=== PATIENT | female | born 1940 | race Caucasian/White ===

== ENCOUNTER 2018-03-27 19:35 | Inpatient (IN) | payer MEDICARE ==
[2018-03-27 20:16] LABS: #Basophils 0.2 thou/uL (0.0-0.2); #Eosinphils 0.2 thou/uL (0.0-0.7); #Lymphocytes 3.8 thou/uL (1.20-3.40); %Basophils 1.6 % (0.0-1.0); %Lymphocytes 33.9 % (21.0-51.0); %Monocytes 8.7 % (0.0-10.0); %Neutrophils 53.8 % (42.0-75.0); Hemoglobin 12.7 g/dL (12.0-16.0); Mean Corpuscular HGB CONC 34.5 g/dL (32.0-36.0); Mean Corpuscular Hemoglobin 30.4 pg (27.0-31.0); Mean Corpuscular Volume 88.1 fl (81.0-99.0); Mean Platelet Volume 6.6 fL (7.4-10.4); Platelet Count 294 thou/uL (130-400); RBC Distribution Width 11.7 % (11.5-14.5); Red Blood Cell (RBC) Count 4.17 mill/uL (4.20-5.40); White Blood Cell (WBC) Count 11.1 thou/uL (4.8-10.8)
[2018-03-27 20:20] LABS: Bilirubin Negative (Negative); Blood, Urine Negative (Negative); Clarity Slightly Cloudy (Clear); Glucose, Urine (Dipstick) Negative (Negative); Leukocyte Small (Negative); Nitrite Negative (Negative); Protein, Urine (Dipstick) Negative (Neg-Trace); Specific Gravity, Urine 1.015 (1.005-1.030); Urobilinogen 0.2 mg/dL (0.2-1.0)
[2018-03-27 20:27] LABS: INR-International Normal Ratio 1.1; PTT 25.9 SEC (22.9-36.1)
[2018-03-27 20:31] LABS: ALT (SGPT) 10 U/L (8-55); AST (SGOT) 14 U/L (5-34); Albumin 4.3 g/dL (3.4-4.8); Alkaline Phosphatase 54 U/L (40-150); Anion Gap 14 mmol/L (10-20); BUN (Urea Nitrogen) 17 mg/dL (9.8-20.1); Bilirubin, Total 0.6 mg/dL (0.2-1.2); CK (CPK) 84 U/L (29-168); Calc. Creatinine Clearance 0 mL/min (70-130); Calcium 10.1 mg/dL (7.8-10.44); Carbon Dioxide 24 mmol/L (23-31); Chloride 104 mmol/L (98-107); Estimated GFR-MDRD 51; Globulin 2.8 g/dL (2.4-3.5); Glucose 100 mg/dL (83-110); Potassium 4.4 mmol/L (3.5-5.1); Protein, Total 7.1 g/dL (6.0-8.3); Sodium 138 mmol/L (136-145)
[2018-03-27 20:32] LABS: CKMB 1.1 ng/mL (0-6.6); Troponin I Less than 0.010 ng/mL (< 0.028)
--- NOTE | 2018-03-27 20:36 | CT ---
CT OF THE BRAIN WITHOUT CONTRAST: 03/27/18 COMPARISON: MRI of brain 10/25/10. HISTORY: Mental status changes and altered mental status. Left sided weakness, dysphagia and difficulty enunci ating words. TECHNIQUE: Multiple contiguous axial images were obtained in a CT of the brain without contrast. FINDINGS: The brain is normal in morphology and attenuation without focal lesions or confluent areas of infarct ion. There is no evidence of hydrocephalus, intracranial hemorrhage or extra-axial fluid collection. The calvarium and overlying soft tissues are unremarkable. The visualized paranasal sinuses and masto id air cells are well aerated. IMPRESSION: No evidence of acute intracranial abnormality. POS: [facility]
[2018-03-27 20:37] LABS: Bacteria/HPF 1+ HPF (None Seen); RBC/HPF 0-3 HPF (0-3)
--- NOTE | 2018-03-27 20:39 | RAD ---
SINGLE VIEW OF THE CHEST 03/27/18 COMPARISON: None. HISTORY: Altered mental status and left sided weakness. FINDINGS: Single view of the chest shows a normal sized cardiomediastinal silhouette with atherosclerotic calci fications in the aorta. There is no evidence of consolidation, mass, or pleural effusion. IMPRESSION: 1. No evidence of acute cardiopulmonary disease. 2. Atherosclerotic disease. POS: [facility]
[2018-03-27 22:12] LABS: Bilirubin Negative (Negative); Blood, Urine Small (Negative); Clarity Clear (Clear); Glucose, Urine (Dipstick) Negative (Negative); Leukocyte Negative (Negative); Nitrite Negative (Negative); Protein, Urine (Dipstick) Negative (Neg-Trace); Urobilinogen 0.2 mg/dL (0.2-1.0)
[2018-03-27 22:13] LABS: Specific Gravity, Urine 1.004 (1.002-1.036)
[2018-03-27 22:24] LABS: Bacteria/HPF None Seen HPF (None Seen); Hyaline Casts/LPF 0-3 HYALINE CAST LPF (0-3 Hyaline); RBC/HPF 0-3 HPF (0-3); Squamous Epithelial 0-3 HPF (0-3); WBC/HPF 0-3 HPF (0-3)
[2018-03-27] MEDS ORDERED: Acetaminophen 325 MG TAB PO PRN (22:44)
[2018-03-27] MEDS ORDERED: Ondansetron HCl/PF 4 MG/2 ML Vial IVP PRN (22:44)
[2018-03-27] MEDS ORDERED: Ondansetron ODT 4 MG TAB SL PRN (22:44)
[2018-03-27] MEDS ORDERED: hydrALAZINE 20 MG/ML VIAL SLOW IVP PRN (23:11)
[2018-03-27] MEDS ORDERED: Bisacodyl 5 MG TAB PO PRN (23:11)
[2018-03-27] MEDS ORDERED: Labetalol HCl 100 MG/20 ML VIAL SLOW IVP PRN (23:11)
--- NOTE | 2018-03-27 23:52 | HP ---
PRIMARY CARE PROVIDER: Essence Ordaz MD CHIEF COMPLAINT: Slurred speech. HISTORY OF PRESENT ILLNESS: Ms. Donald is a pleasant 78-year-old lady who was seen at [facility] on 03/27/2018, following transfer from [facility] Emergency Room. She reports that she was doing well until 5 days ago. At that time, she developed left upper extremi ty and left lower extremity weakness. She waited a couple of days for it to resolve and subsequently told her daughters about the weakness. She also reports falling a few times over the last week. Pr ior to that, she used to use cane only occasionally. She has no using cane all the time. She denies any head trauma. She denies any nausea or vomiting. She reports shortness of breath with exertion. She denies any orthopnea. She denies any chest pain. She denies any fevers or chills. She report s urinary incontinence twice over the last 5 days. Her daughter was with her on the phone earlier today and noticed that her speech was slurred. She, t herefore, took her to the [facility] Emergency Room. The slurred speech is now resolved. She also complains of left foot spasms over the last 5 days. REVIEW OF SYSTEMS: All other systems reviewed and found to be negative. PAST MEDICAL HISTORY: Diet-controlled diabetes mellitus, dyslipidemia, hypertension, right-sided martha ast cancer, moderate coronary artery disease on cardiac catheterization in 06/2016. PAST SURGICAL HISTORY: Right wrist surgery, bladder suspension, left knee surgery, right breast lump ectomy, and hysterectomy. FAMILY HISTORY: Patient is adopted and does not know her family history. SOCIAL HISTORY: Occasional alcohol use. No tobacco use or recreational drug use. CODE STATUS: She is FULL CODE. ALLERGIES: KEFLEX, IBUPROFEN, LEVOFLOXACIN, MACRODANTIN, and SULFA. CURRENT MEDICATIONS: Toprol-XL 50 mg daily, lisinopril 20 mg daily, Lexapro 10 mg daily, Plavix 75 m g daily, Alphagan eyedrops 1 drop to both eyes once daily, Crestor 5 mg daily, Travatan eyedrops 1 dr op to each eye daily. PHYSICAL EXAMINATION: GENERAL: Ms. Donald is awake and alert, not in acute distress. VITAL SIGNS: Blood pressure is 167/71, pulse is 60. She is breathing at rate of 18, and saturating 96% on room air. She is afebrile. EYES: No scleral icterus. No conjunctival pallor. ENT: Moist mucosal membranes. No oropharyngeal erythema or exudates. NECK: Supple, nontender. Trachea is midline. RESPIRATORY: Accessory muscles of breathing are not active. Chest wall movements are symmetric bila terally. LUNGS: Clear to auscultation without wheeze, rhonchi, or crepitations. CARDIOVASCULAR: S1 and S2 are heard, regular. Peripheral pulses palpable. No carotid bruit, no per icardial rub. ABDOMEN: Soft, nontender, bowel sounds are heard. No hepatomegaly, no splenomegaly. NEUROLOGIC: Cranial nerves II through XII are intact. Power is 4+/5 in left upper and left lower ex tremities, 5/5 in right upper and right lower extremities. Deep tendon reflexes 2+, plantar reflexes downgoing bilaterally. Cerebellar: Unremarkable. MUSCULOSKELETAL: Power in the 4 extremities as described above. SKIN: No rashes or subcutaneous nodules. LYMPHATIC: No cervical lymphadenopathy. PSYCHIATRIC: Normal mood, normal affect, patient is oriented to person, place, and time. DATABASE: Ms. Donald's labs and investigations were reviewed. She had an electrocardiogram, which showed normal sinus rhythm, no ST changes to suggest an acute coronary syndrome. She has right bund le-branch block. She had noncontrast CT scan of the brain, which did not show any acute intracranial abnormality. Chest x-ray did not show any evidence of acute cardiopulmonary disease. She has leuko cytosis with 11,100 white cells, of which 53.8% are neutrophils, normal hemoglobin, normal platelet c ount. INR 1.1, normal comprehensive metabolic profile, normal troponin I, and urinalysis positive fo r small amount of blood, but negative for nitrite and leukocyte esterase. ASSESSMENT AND PLAN: Ms. Donald is a pleasant 78-year-old lady who was seen at [facility] on 03/27/2018. Her problem list includes: 1. Weakness: Her presentation is concerning for ischemic cerebrovascular accident. She will be adm itted to the hospital for MRI brain, 2D echocardiogram, and carotid Dopplers. I will continue her on Plavix for now. 2. Hypertension: Resume home medications, monitor vital signs and titrate antihypertensives as need ed. 3. Dyslipidemia: Continue statin. 4. Diet-controlled diabetes mellitus: Continue patient on ADA 1800 calorie diet. Many thanks for allowing me to participate in your patient's care. Please feel free to contact me wi th any questions or concerns. LEVEL OF RISK: Moderate. LEVEL OF COMPLEXITY: Moderate.
[2018-03-27 23:54] VITALS: BMI 35.7
[2018-03-28 00:30] LABS: Troponin I Less than 0.010 ng/mL (< 0.028)
[2018-03-28] MEDS ORDERED: Clopidogrel Bisulfate 75 MG TAB PO SCH (01:00)
[2018-03-28] MEDS ORDERED: Rosuvastatin 5 MG TAB PO SCH (01:00)
[2018-03-28 03:07] LABS: Troponin I Less than 0.010 ng/mL (< 0.028)
[2018-03-28 05:44] LABS: Anion Gap 17 mmol/L (10-20); BUN (Urea Nitrogen) 16 mg/dL (9.8-20.1); Calc. Creatinine Clearance 76 mL/min (70-130); Calcium 9.6 mg/dL (7.8-10.44); Carbon Dioxide 18 mmol/L (23-31); Cardiac Risk 4.6 (Less than 4.5); Chloride 106 mmol/L (98-107); Cholesterol 222 mg/dl (< 200 Desired); Estimated GFR-MDRD 56; Glucose 100 mg/dL (83-110); HDL Cholesterol 48 mg/dL (>60 Neg Risk); LDL Cholesterol, Calculated 147 mg/dL; Potassium 4.1 mmol/L (3.5-5.1); Sodium 137 mmol/L (136-145); Triglycerides 134 mg/dL (Less than 150)
[2018-03-28 05:48] LABS: #Basophils 0.1 thou/uL (0.0-0.2); #Eosinphils 0.3 thou/uL (0.0-0.7); #Lymphocytes 4.8 thou/uL (1.20-3.40); #Monocytes 1.3 thou/uL (0.11-0.59); #Neutrophils 5.6 thou/uL (1.40-6.50); %Basophils 0.5 % (0.0-1.0); %Eosinophils 2.2 % (0.0-10.0); %Lymphocytes 39.6 % (21.0-51.0); %Monocytes 11.1 % (0.0-10.0); %Neutrophils 46.7 % (42.0-75.0); Hemoglobin 11.7 g/dL (12.0-16.0); Mean Corpuscular HGB CONC 33.4 g/dL (32.0-36.0); Mean Corpuscular Hemoglobin 30.5 pg (27.0-31.0); Mean Corpuscular Volume 91.3 fl (81.0-99.0); Mean Platelet Volume 7.1 fL (7.4-10.4); Platelet Count 259 thou/uL (130-400); RBC Distribution Width 11.9 % (11.5-14.5); Red Blood Cell (RBC) Count 3.85 mill/uL (4.20-5.40)
--- NOTE | 2018-03-28 09:29 | MRI ---
MRI OF BRAIN PERFORMED WITHOUT CONTRAST ENHANCEMENT: HISTORY: Altered mental status, left-sided weakness, dysphasia, and difficulty enunciating words. FINDINGS: There is some mild ventricular and sulcal prominence. There are areas of T2 and FLAIR hyperintensity seen within the white matter consistent with some chronic white matter change. On the diffusion meka ght sequence, I do not see any signs that would suggest acute infarct. No intra- or extraaxial mass is identified. Mastoid air cells are clear. There is mucosal change within bilateral ethmoid air ce lls. IMPRESSION: No acute intracranial abnormalities. Atrophy with chronic white matter change. POS: [facility]
[2018-03-28] MEDS: Lisinopril 20 MG TAB PO SCH (09:54)
[2018-03-28] MEDS: Escitalopram Oxalate 10 mg Tablet PO SCH (09:54)
--- NOTE | 2018-03-28 11:38 | ULT ---
CAROTID DOPPLER ULTRASOUND: Date: 03/28/18 HISTORY: Stroke workup. COMPARISON: None. TECHNIQUE: Real-time Rodriguez scale, color Doppler, and spectral analysis of the extracranial carotid and vertebral arteries was performed. FINDINGS: Antegrade flow both vertebral arteries. No elevated peak systolic velocities. Right ICA/CCA ratio is 0.76. Left ICA/CCA ratio is 0.70. IMPRESSION: No hemodynamically significant stenosis. POS: [facility]
[2018-03-28] MEDS: Brimonidine Tartrate 0.2% Ophth Soln 5 ml Bottle EA EYE SCH (12:53)
--- NOTE | 2018-03-28 15:10 | PDOC.PN ---
- Subjective Encounter Start Date: 03/28/18 Encounter Start Time: 09:00 Subjective: pt up in bed no complains - Objective Resuscitation Status: Resuscitation Status FULL:Full Resuscitation Vital Signs & Weight: Vital Signs (12 hours) Temp Pulse Pulse Pulse Resp BP BP 03/28/18 11:16 98.6 F 67 20 03/28/18 09:54 156/72 H 03/28/18 08:40 62 61 206/83 H 03/28/18 08:00 98.0 F 65 14 03/28/18 07:14 98.0 F 65 14 03/28/18 03:14 98.2 F 60 16 BP BP Pulse Ox 03/28/18 11:16 172/79 H 98 03/28/18 09:54 03/28/18 08:40 193/78 H 03/28/18 08:00 97 03/28/18 07:14 156/72 H 97 03/28/18 03:14 171/84 H 97 Weight Weight 221 lb 11.2 oz Result Diagrams: 03/28/18 02:33 03/28/18 02:33 Phys Exam - Physical Examination HEENT: PERRLA, moist MMs, sclera anicteric, TM's clear, oral pharynx no lesions , 2+ tonsils Neck: no nodes, no JVD, supple, full ROM Respiratory: no wheezing, no rales, no rhonchi, wheezing present, clear to auscultation bilateral Cardiovascular: RRR, no significant murmur, no rub, gallop, irregular Gastrointestinal: soft, non-tender, no distention, positive bowel sounds Musculoskeletal: no edema, pulses present, edema present mild weakness to the left upper and lower Dx/Plan - Plan 1) left sided weakness: hx of tia's 2) falls 3) htn 4) dyslipidemia plan: pt's MRI brain negative, carotid no stenosis. echo pending. pt is on plavix. will increase her statin. Pt did have a fall in the hospital and has been falling few times at home. Pt does have some orthopedic issues of both her knees. PT to evaluate pt since she lives alone and she may need inpatient rehab vs outpatient. * . Review of Systems - Review of Systems Eyes: negative: Pain, Vision Change, Conjunctivae Inflammation, Eyelid Inflammation, Redness, Other ENT: negative: Ear Pain, Ear Discharge, Nose Pain, Nose Discharge, Nose Congestion, Mouth Pain, Mouth Swelling, Throat Pain, Throat Swelling, Other Respiratory: negative: Cough, Dry, Shortness of Breath, Hemoptysis, SOB with Excertion, Pleuritic Pain, Sputum, Wheezing Cardiovascular: negative: chest pain, palpitations, orthopnea, paroxysmal nocturnal dyspnea, edema, light headedness, other Gastrointestinal: negative: Nausea, Vomiting, Abdominal Pain, Diarrhea, Constipation, Melena, Hematochezia, Other Neurological: Other (mild weakness to left upper and lower ext) - Medications/Allergies Allergies/Adverse Reactions: Allergies Allergy/AdvReac Type Severity Reaction Status Date / Time cephalexin monohydrate Allergy Verified 03/27/18 23:38 [From Keflex] ibuprofen Allergy Verified 03/27/18 23:38 levofloxacin [From Levaquin] Allergy Verified 03/27/18 23:38 nitrofurantoin Allergy Verified 03/27/18 23:38 macrocrystalline [From Macrodantin] Sulfa (Sulfonamide Allergy Verified 03/27/18 23:38 Antibiotics) triamcinolone acetonide Allergy Verified 07/18/16 20:25 [From Kenalog] Medications: Current Medications Acetaminophen (Tylenol) 650 mg PO Q4H PRN PRN Reason: Headache/Fever or Pain Bisacodyl (Dulcolax) 10 mg PO DAILYPRN PRN PRN Reason: Constipation Brimonidine Tartrate (Alphagan 0.2% Ophth Soln) 0 drop EA EYE DAILY [facility] Last Admin: 03/28/18 12:53 Dose: 1 drop Clopidogrel Bisulfate (Plavix) 75 mg PO HS [facility] Escitalopram Oxalate (Lexapro) 10 mg PO DAILY [facility] Last Admin: 03/28/18 09:54 Dose: 10 mg Hydralazine HCl (Apresoline) 10 mg SLOW IVP Q4H PRN PRN Reason: BP > 220/110 Labetalol HCl (Normodyne) 20 mg SLOW IVP Q1H PRN PRN Reason: BP > 220/110 Latanoprost (Xalatan 0.005% Ophth Soln) 0 drop EA EYE QPM [facility] Lisinopril (Zestril) 20 mg PO DAILY [facility] Last Admin: 03/28/18 09:54 Dose: 20 mg Metoprolol Succinate (Toprol Xl) 50 mg PO DAILY [facility] Last Admin: 03/28/18 09:55 Dose: 50 mg Rosuvastatin Calcium (Crestor) 5 mg PO HS [facility] Sodium Chloride (Flush - Normal Saline) 10 ml IVF Q12HR [facility] Last Admin: 03/28/18 09:55 Dose: 10 ml Sodium Chloride (Flush - Normal Saline) 10 ml IVF PRN PRN PRN Reason: Saline Flush
[2018-03-28] MEDS ORDERED: Non-Formulary Item 1 EACH (Travoprost [Travatan Z] 1 DROP) EA EYE SCH (21:00)
[2018-03-28] MEDS: Rosuvastatin 5 MG TAB PO SCH (21:05)
[2018-03-28] MEDS: Clopidogrel Bisulfate 75 MG TAB PO SCH (21:05)
[2018-03-28] MEDS: Latanoprost 0.005% Ophth Soln 2.5 ml Bottle EA EYE SCH (21:06)
[2018-03-29] MEDS: Acetaminophen 325 MG TAB PO PRN ×2 (00:15→21:40)
[2018-03-29 05:08] LABS: Hemoglobin A1c 5.9 % (4.0-6.0)
[2018-03-29] MEDS: Brimonidine Tartrate 0.2% Ophth Soln 5 ml Bottle EA EYE SCH (09:06)
[2018-03-29] MEDS: Escitalopram Oxalate 10 mg Tablet PO SCH (09:07)
[2018-03-29] MEDS: Lisinopril 20 MG TAB PO SCH (09:07)
--- NOTE | 2018-03-29 21:32 | PDOC.PN ---
- Subjective Encounter Start Date: 03/29/18 Encounter Start Time: 11:45 Subjective: pt up in bed no complains - Objective Resuscitation Status: Resuscitation Status FULL:Full Resuscitation Vital Signs & Weight: Vital Signs (12 hours) Temp Pulse Pulse Pulse Resp BP BP 03/29/18 19:19 98.2 F 61 20 03/29/18 15:28 97.6 F 58 L 14 03/29/18 11:54 97.8 F 63 18 03/29/18 09:30 69 60 159/59 H 120/63 BP Pulse Ox 03/29/18 19:19 196/69 H 98 03/29/18 15:28 149/81 H 98 03/29/18 11:54 124/57 L 96 03/29/18 09:30 Weight Weight 221 lb 11.2 oz Result Diagrams: 03/28/18 02:33 03/28/18 02:33 Phys Exam - Physical Examination HEENT: PERRLA, moist MMs, sclera anicteric, TM's clear, oral pharynx no lesions , 2+ tonsils Neck: no nodes, no JVD, supple, full ROM Respiratory: no wheezing, no rales, no rhonchi, wheezing present, clear to auscultation bilateral Cardiovascular: RRR, no significant murmur, no rub, gallop, irregular Gastrointestinal: soft, non-tender, no distention, positive bowel sounds mild weakness to left upper and lower ext Dx/Plan - Plan 1) left sided weakness: hx of tia's 2) falls 3) htn 4) dyslipidemia plan: pt's MRI brain negative, carotid no stenosis. echo pending. pt is on plavix. will increase her statin. Pt did have a fall in the hospital and has been falling few times at home. Pt does have some orthopedic issues of both her knees. PT to evaluate pt since she lives alone and she may need inpatient rehab vs outpatient. 03/29 pt's echo ef of 55-60%, pt was initially declined for inpatient rehab. Pt has been falling at home and also fell in the hospital. Pt is very unstable on her feet. She has been holding on to thing and walking. spoke with Dr Lorenzo about pt's safety since pt lives alone. Appreciate Dr Lorenzo's help with aiding acceptance into rehab. will discharge pt miguel a. will increase crestor to 20mg. * . Review of Systems - Review of Systems Eyes: negative: Pain, Vision Change, Conjunctivae Inflammation, Eyelid Inflammation, Redness, Other ENT: negative: Ear Pain, Ear Discharge, Nose Pain, Nose Discharge, Nose Congestion, Mouth Pain, Mouth Swelling, Throat Pain, Throat Swelling, Other Respiratory: negative: Cough, Dry, Shortness of Breath, Hemoptysis, SOB with Excertion, Pleuritic Pain, Sputum, Wheezing Cardiovascular: negative: chest pain, palpitations, orthopnea, paroxysmal nocturnal dyspnea, edema, light headedness, other Gastrointestinal: negative: Nausea, Vomiting, Abdominal Pain, Diarrhea, Constipation, Melena, Hematochezia, Other Genitourinary: negative: Dysuria, Frequency, Incontinence, Hematuria, Retention , Other Musculoskeletal: negative: Neck Pain, Shoulder Pain, Arm Pain, Back Pain, Hand Pain, Leg Pain, Foot Pain, Other - Medications/Allergies Allergies/Adverse Reactions: Allergies Allergy/AdvReac Type Severity Reaction Status Date / Time cephalexin monohydrate Allergy Verified 03/27/18 23:38 [From Keflex] ibuprofen Allergy Verified 03/27/18 23:38 levofloxacin [From Levaquin] Allergy Verified 03/27/18 23:38 nitrofurantoin Allergy Verified 03/27/18 23:38 macrocrystalline [From Macrodantin] Sulfa (Sulfonamide Allergy Verified 03/27/18 23:38 Antibiotics) triamcinolone acetonide Allergy Verified 07/18/16 20:25 [From Kenalog] Medications: Current Medications Acetaminophen (Tylenol) 650 mg PO Q4H PRN PRN Reason: Headache/Fever or Pain Last Admin: 03/29/18 00:15 Dose: 650 mg Bisacodyl (Dulcolax) 10 mg PO DAILYPRN PRN PRN Reason: Constipation Brimonidine Tartrate (Alphagan 0.2% Ophth Soln) 0 drop EA EYE DAILY [facility] Last Admin: 03/29/18 09:06 Dose: 1 drop Clopidogrel Bisulfate (Plavix) 75 mg PO HS [facility] Last Admin: 03/28/18 21:05 Dose: 75 mg Escitalopram Oxalate (Lexapro) 10 mg PO DAILY [facility] Last Admin: 03/29/18 09:07 Dose: 10 mg Hydralazine HCl (Apresoline) 10 mg SLOW IVP Q4H PRN PRN Reason: BP > 220/110 Labetalol HCl (Normodyne) 20 mg SLOW IVP Q1H PRN PRN Reason: BP > 220/110 Latanoprost (Xalatan 0.005% Oph Soln) 0 drop EA EYE QPM [facility] Last Admin: 03/28/18 21:06 Dose: 1 drp Lisinopril (Zestril) 20 mg PO DAILY [facility] Last Admin: 03/29/18 09:07 Dose: 20 mg Metoprolol Succinate (Toprol Xl) 50 mg PO DAILY [facility] Last Admin: 03/29/18 09:08 Dose: 50 mg Rosuvastatin Calcium (Crestor) 20 mg PO HS [facility] Sodium Chloride (Flush - Normal Saline) 10 ml IVF Q12HR [facility] Last Admin: 03/29/18 09:08 Dose: 10 ml Sodium Chloride (Flush - Normal Saline) 10 ml IVF PRN PRN PRN Reason: Saline Flush
[2018-03-29] MEDS: Clopidogrel Bisulfate 75 MG TAB PO SCH (21:40)
[2018-03-29] MEDS: Latanoprost 0.005% Ophth Soln 2.5 ml Bottle EA EYE SCH (21:40)
[2018-03-29] MEDS: Rosuvastatin 5 MG TAB PO SCH (22:29)
[2018-03-30] MEDS: Brimonidine Tartrate 0.2% Ophth Soln 5 ml Bottle EA EYE SCH (08:48)
[2018-03-30] MEDS: Escitalopram Oxalate 10 mg Tablet PO SCH (08:49)
[2018-03-30] MEDS: Lisinopril 20 MG TAB PO SCH (08:49)
--- NOTE | 2018-03-30 10:03 | DIS ---
DATE OF ADMISSION: 03/27/2018 DATE OF DISCHARGE: 03/30/2018 HOSPITAL COURSE: The patient is a 78-year-old female with a history of TIAs, hypertension, and hyper lipidemia, who initially presented to the hospital with slurred speech and left-sided weakness. She underwent a CT head, which was negative. She was admitted for possible stroke. Patient also had a b rain MRI done, which indicated no acute intracranial abnormalities, atrophic changes with chronic whi te matter changes. She also had carotid Dopplers, which did not show any significant stenosis. She also had an echocardiogram, which indicated an EF of 55%-60% with mild concentric left ventricular hy pertrophy with mild tricuspid regurgitation and mild mitral regurgitation. Patient was already on Pl avix due to her history of previous TIAs; we continued the Plavix. Her rosuvastatin was increased fr om 5 mg to 10 mg. The patient states that she did not want 20 mg given the side effects of the stati ns, so we will increase it only to 10 mg. The patient does also have some orthopedic issues on the l eft side of her lower extremity. The patient normally uses a cane at home; however, has been falling quite a bit at home also. The patient did have a fall while she was in the hospital, and therefore, she will be going to rehab for safety reasons. The patient does live alone. DISCHARGE MEDICATIONS: As the following: Crestor 10 mg at bedtime, Toprol 50 mg daily, Lexapro 20 m g daily, lisinopril 20 mg daily, Plavix 75 mg at bedtime, and Travatan 1 drop to each eye q.p.m. PHYSICAL EXAMINATION: VITAL SIGNS: 97.8, 16, 94% on room air, 185/78. GENERAL: She is awake, alert, oriented x3, does not appear in any distress. CARDIOVASCULAR: S1 and S2 present. No murmurs, rubs, or gallops. ABDOMEN: Soft, nontender. Bowel sounds are present x2. EXTREMITIES: Pedal pulse is present. No edema. NEUROLOGIC: She has got good 5/5 upper extremity strength. She does have some mild weakness on the left lower extremity. She will be discharged home. Follow up with PCP as outpatient.
[2018-03-30 11:43] VITALS: BP 135/61; TEMP 98.3
[2018-03-30] MEDS ORDERED: Rosuvastatin 20 MG TAB PO SCH (21:00)
--- NOTE | 2018-04-02 08:06 | PQF ---
THUY POND CAMDEN DONOVAN [id number] [facility] [place] [id number] CLINICAL DOCUMENTATION CLARIFICATION FORM: POST DISCHARGE Addendum to original discharge summary date: 03/30/2018 DATE: 04/02/2018 ATTN: Dr. Mckinney Please exercise your independent, professional judgment in responding to the clarification form. Clinical indicators are provided on the bottom of this form for your review Please specify the cause of patient's left sided weakness Please check appropriate box(s): [ ] Left sided weakness due to [ ] Other diagnosis (please specify) [ x] Unable to determine In addition, please specify: Present on Admission (POA): [ x ] Yes [ ] No [ ] Unable to determine For continuity of documentation, please document condition throughout progress notes and discharge summary. Thank You. CLINICAL INDICATORS - SIGNS / SYMPTOMS / LABS Per H&P: Development of left upper extremity and left lower extremity weakness. Reports falling a few times over the last week. Slurred speech (now resolved). . CT of the brain was negative. Weakness. Her presentation is concerning for ischemic cerebrovascular accident. Per progress notes: MRI brain was negative. RISK FACTORS Per progress notes: History of TIA's. Hypertension. Hyperlipidemia. Unsteady on feet. Falling at home and in hospital. TREATMENTS: Per H&P: Continue on Plavix. Per progress notes: Will increase her statin. (This form is maintained as a part of the permanent medical record) 2014 [employer] All Rights Reserved Norma [email or web address] [phone] MTDD
== END 2018-03-30 13:04 | DRG 556 ==
LOC: SCSER 19:35 → 2SE 20:40
PROVIDERS: ADMIT Family Medicine; ATTEND Family Medicine
DX: R29.898 Other symptoms and signs involving the musculoskeletal system (principal); I10 Essential (primary) hypertension; E78.5 Hyperlipidemia, unspecified; I25.10 Atherosclerotic heart disease of native coronary artery without angina pectoris; Z91.81 History of falling; Z86.73 Personal history of transient ischemic attack (TIA), and cerebral infarction without residual deficits; Z88.6 Allergy status to analgesic agent; Z88.1 Allergy status to other antibiotic agents; Z88.2 Allergy status to sulfonamides; Z79.02 Long term (current) use of antithrombotics/antiplatelets; Z79.899 Other long term (current) drug therapy
CPT/HCPCS: 36415; 51701; 70450; 70551; 71045; 80048; 80053; 80061; 81003; 81015; 82550; 82553; 83036; 84484; 85025; 85610; 85730; 93005; 93306; 93880; 94760; A4216; G8978-GP-CK; G8979-GP-CJ; G8987-GO-CI; G8988-GO-CI; G8989-GO-CI; G8996-GN-CI; G8997-GN-CH

== ENCOUNTER 2019-07-02 13:43 | Outpatient (CLI) | payer MEDICARE ==
--- NOTE | 2019-07-02 14:56 | MMO ---
Bilateral MAMMO Bilat Screen [facility]. CLINICAL HISTORY: Patient is 79 years old and is seen for screening. The patient has no family history of breast cancer. The patient has a history of malignant (generic) in the right breast at age 55. 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 VIEWS: The views performed were: bilateral craniocaudal with tomosynthesis and bilateral mediolateral oblique with tomosynthesis. FILMS COMPARED: The present examination has been compared to prior imaging studies performed at [facility] on 02/21/2007 and 03/04/2008. MAMMOGRAM FINDINGS: There are scattered fibroglandular densities. There are stable benign appearing calcifications seen in both breasts. There are no suspicious masses, suspicious calcifications, or new areas of architectural distortion. IMPRESSION: THERE IS NO MAMMOGRAPHIC EVIDENCE OF MALIGNANCY. A ROUTINE FOLLOW-UP MAMMOGRAM IN 1 YEAR IS RECOMMENDED. THE RESULTS OF THIS EXAM WERE SENT TO THE PATIENT. ACR BI-RADS Category 2 - Benign finding MAMMOGRAPHY NOTE: 1. A negative mammogram report should not delay a biopsy if a dominant of clinically suspicious mass is present. 2. Approximately 10% to 15% of breast cancers are not detected by mammography. 3. Adenosis and dense breasts may obscure an underlying neoplasm. Reported by: BASIA GRAY MD Electonically Signed: [id number]
== END 2019-07-02 13:44 | disposition home or self-care (01) ==
LOC: BICMAMMO 13:43
PROVIDERS: ATTEND Internal Medicine
DX: Z12.31 Encounter for screening mammogram for malignant neoplasm of breast (principal); Z80.3 Family history of malignant neoplasm of breast
CPT/HCPCS: 77063; 77067

== ENCOUNTER 2020-07-07 12:35 | Outpatient (CLI) | payer MEDICARE ==
--- NOTE | 2020-07-08 13:42 | MMO ---
Bilateral MAMMO Bilat Screen [facility]. CLINICAL HISTORY: Patient is 80 years old and is seen for screening. The patient has no family history of breast cancer. The patient has a history of malignant (generic) in the right breast at age 55. 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 VIEWS: The views performed were: bilateral craniocaudal with tomosynthesis and bilateral mediolateral oblique with tomosynthesis. FILMS COMPARED: The present examination has been compared to prior imaging studies performed at [facility] on 02/21/2007 and 03/04/2008, and at [facility] on 07/02/2019. This study has been interpreted with the assistance of computer-aided detection. MAMMOGRAM FINDINGS: There are scattered fibroglandular densities. Benign calcifications are noted bilaterally. There are no suspicious masses, suspicious calcifications, or new areas of architectural distortion. IMPRESSION: THERE IS NO MAMMOGRAPHIC EVIDENCE OF MALIGNANCY. A ROUTINE FOLLOW-UP MAMMOGRAM IN 1 YEAR IS RECOMMENDED. THE RESULTS OF THIS EXAM WERE SENT TO THE PATIENT. ACR BI-RADS Category 2 - Benign finding MAMMOGRAPHY NOTE: 1. A negative mammogram report should not delay a biopsy if a dominant of clinically suspicious mass is present. 2. Approximately 10% to 15% of breast cancers are not detected by mammography. 3. Adenosis and dense breasts may obscure an underlying neoplasm. Reported by: SALBADOR REINA MD Electonically Signed: [id number]
== END 2020-07-07 12:36 | disposition home or self-care (01) ==
LOC: BICMAMMO 12:35
PROVIDERS: ATTEND Family Medicine
DX: Z12.31 Encounter for screening mammogram for malignant neoplasm of breast (principal); Z85.3 Personal history of malignant neoplasm of breast
CPT/HCPCS: 77063; 77067

== ENCOUNTER 2021-01-05 12:28 | Outpatient (CLI) | payer MEDICARE | END 2021-01-05 12:29 | disposition home or self-care (01) | LOC: BICMAMMO 12:28 | PROVIDERS: ATTEND Family Medicine | DX: Z13.820 Encounter for screening for osteoporosis (principal); M85.89 Other specified disorders of bone density and structure, multiple sites | CPT/HCPCS: 77080 ==

== ENCOUNTER 2021-08-03 12:20 | Outpatient (CLI) | payer MEDICARE | END 2021-08-03 12:21 | disposition home or self-care (01) | LOC: BICMAMMO 12:20 | PROVIDERS: ATTEND Family Medicine | DX: Z12.31 Encounter for screening mammogram for malignant neoplasm of breast (principal); Z85.3 Personal history of malignant neoplasm of breast; Z98.890 Other specified postprocedural states | CPT/HCPCS: 77063; 77067 ==

== ENCOUNTER 2023-01-29 14:12 | Outpatient (CLI) | payer MEDICARE | END 2023-01-29 14:13 | disposition home or self-care (01) | LOC: BICMAMMO 14:12 | PROVIDERS: ATTEND Family Medicine | DX: Z12.31 Encounter for screening mammogram for malignant neoplasm of breast (principal) | CPT/HCPCS: 77063; 77067 ==